=== PATIENT | female | born 1955 | race Caucasian/White ===

== ENCOUNTER 2017-11-15 06:14 | Day surgery (SDC) | payer BC, OTHER ==
[2017-11-13 08:26] VITALS: BMI 28.0
[~2017-11-15 06:14] MED LIST: LACTATED RINGERS 1,000 ML IV SCH; LIDOCAINE 1% 20 ML VIAL (10MG/ML) FOR IV START INTRADERMA PRN; MIDAZOLAM 2 MG/2 ML VIAL IV PRN; MOXIFLOXACIN HCL 0.5% DROPS 3 ML BTL OP ONE; TETRACAINE 0.5% OPHTH (PF) DROPS 4 ML BTL OP ONE; TIMOLOL 0.5% OPHTH DROPS 5 ML BTL OP ONE
[2017-11-15] MEDS: PHENYLEPHRINE 2.5% OPHTH DRP 2ML OP NR ×3 (06:52→07:09)
[2017-11-15] MEDS: CYCLOPENTOLATE 1% OPHTH SOLN 2 ML BTL OP ONE ×3 (06:56→07:14)
[2017-11-15 07:11] LABS: Glucose,Whole Blood 111 mg/dL (75-99)
[2017-11-15 07:17] VITALS: RESP 16; TEMP 98
[2017-11-15] MEDS ORDERED: MIDAZOLAM 2 MG/2 ML VIAL ONE (07:26)
[2017-11-15] MEDS ORDERED: HYALURONATE SODIUM INTRAOCULAR 1 EACH SYRINGE (12MG/ML) INTRAOCULA ONE (07:38)
[2017-11-15] MEDS ORDERED: BALANCED SALT IRRIG SOLN COMB2 15 ML IRRIG.SOLN IRRIGATION ONE (07:38)
[2017-11-15] MEDS ORDERED: LIDOCAINE 1% (PF) 10MG/ML VIAL MISCELLANE ONE (07:38)
[2017-11-15] MEDS ORDERED: EPINEPHrine (PF) 0.3 ML in BALANCED SALT IRRIG SOLN COMB2 500 ML IRRIGATION ONE (07:38)
--- NOTE | 2017-11-15 07:53 | P.OP ---
Date of Procedure: 11/15/17 Preoperative Diagnosis: NS & CS Postoperative Diagnosis: same Procedure(s) Performed: PIOL, OS Implants: PCB0 20.00 Anesthesia: MAC Surgeon: Rey Alejandra Estimated Blood Loss (ml): 0 Pathology: none sent Condition: stable Indications for Procedure: blurry vision Operative Findings: No complications
[2017-11-15 08:29] VITALS: BP 110/64; PULSE 66
--- NOTE | 2017-11-15 12:31 | OP ---
OPERATIVE REPORT DATE OF SURGERY: 11/15/2017. SURGEON: Rey Alejandra MD QC MANAGER: PREOPERATIVE DIAGNOSIS: Nuclear sclerosis, cortical sclerosis. POSTOPERATIVE DIAGNOSIS: Nuclear sclerosis, cortical sclerosis. OPERATION: Phacoemulsification of cataract and intraocular lens implant of the left eye. ESTIMATED BLOOD LOSS: Zero. SPECIMEN TAKEN: None. NARRATIVE: After obtaining the appropriate consent, the patient was brought to the operating room where the patient was placed under cardiac monitoring and prepped and draped in the usual sterile manner. At the 5 o'clock position a 15 degree super sharp blade was used to create a paracentesis followed by instillation of 1% Xylocaine MPF 50:50 mix with BSS into the anterior chamber. This was followed by Amvisc to stabilize the anterior chamber. At the 3 o'clock a self-sealing corneal flap incision was created using 2.8 mm tegan keratome. A cystotome was used to initiate a continuous tear capsulorrhexis which was completed with the Utrata forceps. A Binkhorst cannula was used to hydrodissect the lens nucleus followed by hydrodelineation. Phacoemulsification of the lens was performed utilizing phaco chop in 7.76 seconds at 7% power. The remaining cortical material was removed using the irrigation aspiration mode followed by additional 1% Xylocaine MPF into the anterior chamber followed by viscoelastic to stabilize the capsular bag. An ZAHRAA PCB00 20.0 diopters posterior chamber lens was placed into the capsular bag without difficulty. The remaining viscoelastic material was removed from the anterior chamber with the irrigation/aspiration. Balanced salt solution was used to normalize the intraocular pressure. The incision was checked for watertight integrity. The patient then received two drops of 0.5% timolol followed by two drops Vigamox, was lightly patched and shielded in the usual manner. There were no complications from the procedure. The patient tolerated the procedure well and was returned to recovery in good condition. MMODL / IJN: [id number] /
== END 2017-11-15 08:40 | disposition home or self-care (01) ==
LOC: OR 06:14
PROVIDERS: ATTEND Ophthalmology
DX: H25.12 Age-related nuclear cataract, left eye (principal); H25.012 Cortical age-related cataract, left eye; H52.13 Myopia, bilateral; F32.9 Major depressive disorder, single episode, unspecified; I10 Essential (primary) hypertension; E78.5 Hyperlipidemia, unspecified; E11.9 Type 2 diabetes mellitus without complications; J30.2 Other seasonal allergic rhinitis; M19.90 Unspecified osteoarthritis, unspecified site; K21.9 Gastro-esophageal reflux disease without esophagitis; Z79.84 Long term (current) use of oral hypoglycemic drugs; Z79.899 Other long term (current) drug therapy; Z88.5 Allergy status to narcotic agent; Z88.2 Allergy status to sulfonamides; Z98.51 Tubal ligation status
CPT/HCPCS: 66984; C1780; J2250; J0171; J2001

== ENCOUNTER 2017-11-29 06:13 | Day surgery (SDC) | payer BC ==
[2017-11-24 08:33] VITALS: BMI 28.0
[~2017-11-29 06:13] MED LIST changes: -MIDAZOLAM 2 MG/2 ML VIAL IV PRN; -MOXIFLOXACIN HCL 0.5% DROPS 3 ML BTL OP ONE; +ONDANSETRON 4 MG/2 ML VIAL IVP ONE; -TETRACAINE 0.5% OPHTH (PF) DROPS 4 ML BTL OP ONE; -TIMOLOL 0.5% OPHTH DROPS 5 ML BTL OP ONE
[2017-11-29] MEDS: PHENYLEPHRINE 2.5% OPHTH DRP 2ML OP NR ×3 (06:35→06:46)
[2017-11-29] MEDS: CYCLOPENTOLATE 1% OPHTH SOLN 2 ML BTL OP ONE ×3 (06:38→06:49)
[2017-11-29 06:42] LABS: Glucose,Whole Blood 112 mg/dL (75-99)
[2017-11-29 06:44] VITALS: TEMP 97.1
[2017-11-29] MEDS ORDERED: fentaNYL (PF) 50 MCG/ML 2 ML AMP ONE (07:26)
[2017-11-29] MEDS ORDERED: MIDAZOLAM 2 MG/2 ML VIAL ONE (07:26)
[2017-11-29] MEDS ORDERED: EPINEPHrine (PF) 0.3 ML in BALANCED SALT IRRIG SOLN COMB2 500 ML IRRIGATION ONE ×4 (07:27)
[2017-11-29] MEDS ORDERED: HYALURONATE SODIUM INTRAOCULAR 1 EACH SYRINGE (12MG/ML) INTRAOCULA ONE ×2 (07:35→07:37)
[2017-11-29] MEDS ORDERED: LIDOCAINE 1% (PF) 10MG/ML VIAL MISCELLANE ONE ×2 (07:36→07:37)
[2017-11-29] MEDS ORDERED: BALANCED SALT IRRIG SOLN COMB2 15 ML IRRIG.SOLN IRRIGATION ONE ×2 (07:36→07:37)
--- NOTE | 2017-11-29 07:53 | P.OP ---
Date of Procedure: 11/29/17 Preoperative Diagnosis: NS & CS Postoperative Diagnosis: same Procedure(s) Performed: PIOL, OD Implants: PCB00 20.00 Surgeon: Rey Alejandra Estimated Blood Loss (ml): 0 Pathology: none sent Condition: stable Disposition: same day Indications for Procedure: blurry vision Operative Findings: No complications
[2017-11-29 08:26] VITALS: BP 129/70; PULSE 60; RESP 18
--- NOTE | 2017-11-29 21:40 | OP ---
OPERATIVE REPORT DATE OF SURGERY: 11/29/[address] ROLLER ENGINEER: SURGEON: Dr. Rey Alejandra PREOPERATIVE DIAGNOSES:: Nuclear sclerosis. Cortical sclerosis. POSTOPERATIVE DIAGNOSES:: Nuclear sclerosis. Cortical sclerosis. OPERATION:: Clear cornea phacoemulsification of cataract right OD eye. ESTIMATED BLOOD LOSS:: Zero. SPECIMEN TAKEN:: None. NARRATIVE:: After obtaining the appropriate consent, the patient was brought to the Operating Room where the patient was placed under cardiac monitoring and prepped and draped in the usual sterile manner. At the 11 o'clock position a 15 degree super sharp blade was used to create a paracentesis followed by instillation of 1% Xylocaine MPF 50:50 mix with BSS into the anterior chamber. This was followed by Amvisc to stabilize the anterior chamber. At the 9 o'clock position a self-sealing corneal flap incision was created using 2.8 mm tegan keratome. A cystatome was used to initiate a continuous tear capsulorrhexis which was completed with the Utrata forceps. A Binkhorst cannula was used to hydrodissect the lens nucleus followed by hydrodelineation. Phacoemulsification of the lens was performed utilizing phacochop in 8.73 seconds at 8% power. The remaining cortical material was removed using the irrigation aspiration mode followed by additional 1% Xylocaine MPF into the anterior chamber followed by viscoelastic to stabilize the capsular bag. An ZAHRAA PCB 0 0 20.0 diopters posterior chamber lens was placed into the capsular bag without difficulty. The remaining viscoelastic material was removed from the anterior chamber with the irrigation/aspiration. Balanced salt solution was used to normalize the intraocular pressure. The incision was checked for watertight integrity. The patient then received two drops of 0.5% timolol followed by two drops Vigamox, was lightly patched and shielded in the usual manner. There were no complications from the procedure. The patient tolerated the procedure well and was returned to recovery in good condition. MMODL / IJN: [id number] /
[2017-11-30] MEDS ORDERED: TETRACAINE 0.5% OPHTH (PF) DROPS 4 ML BTL OP ONE (05:00)
[2017-11-30] MEDS ORDERED: MOXIFLOXACIN HCL 0.5% DROPS 3 ML BTL OP ONE (05:00)
[2017-11-30] MEDS ORDERED: TIMOLOL 0.5% OPHTH DROPS 5 ML BTL OP ONE (05:00)
== END 2017-11-29 08:36 | disposition home or self-care (01) ==
LOC: OR 06:13
PROVIDERS: ATTEND Ophthalmology
DX: H25.11 Age-related nuclear cataract, right eye (principal); F32.9 Major depressive disorder, single episode, unspecified; I10 Essential (primary) hypertension; E78.5 Hyperlipidemia, unspecified; K21.9 Gastro-esophageal reflux disease without esophagitis; E11.9 Type 2 diabetes mellitus without complications; Z79.84 Long term (current) use of oral hypoglycemic drugs; Z79.899 Other long term (current) drug therapy; Z88.5 Allergy status to narcotic agent; Z88.2 Allergy status to sulfonamides
CPT/HCPCS: 66984; C1780; J2250; J0171; J3010; J2001

== ENCOUNTER → 2018-04-27 | Outpatient (CLI) | payer BC ==
--- NOTE | 2018-04-30 09:19 | MM ---
Reason for exam: screening (asymptomatic). Last mammogram was performed 2 years and 2 months ago. History: Patient is postmenopausal. Family history of breast cancer in aunt at age 55. Physical Findings: A clinical breast exam by your physician is recommended on an annual basis and results should be correlated with mammographic findings. MG 3D Screening Mammo W/Cad Bilateral CC and MLO view(s) were taken. Prior study comparison: February 11, 2016, bilateral MG 3d work up w/cad [facility]. February 08, 2016, bilateral MG screening mammo w CAD. The breast tissue is heterogeneously dense. This may lower the sensitivity of mammography. Stable benign calcifications. There is no discrete abnormality. No significant changes when compared with prior studies. ASSESSMENT: Benign, BI-RAD 2 RECOMMENDATION: Routine screening mammogram of both breasts in 1 year.
== END | disposition home or self-care (01) ==
LOC: RADMAMWWP 10:06
PROVIDERS: ATTEND Family Medicine
DX: Z12.31 Encounter for screening mammogram for malignant neoplasm of breast (principal)
CPT/HCPCS: 77063; 77067

== ENCOUNTER → 2021-02-15 | Outpatient (CLI) | payer BC ==
--- NOTE | 2021-02-16 09:15 | MM ---
Reason for exam: screening (asymptomatic). Last mammogram was performed 2 years and 10 months ago. History: Patient is postmenopausal. Family history of breast cancer in paternal aunt at age 55. Physical Findings: A clinical breast exam by your physician is recommended on an annual basis and results should be correlated with mammographic findings. MG 3D Screening Mammo W/Cad Bilateral CC and MLO view(s) were taken. Prior study comparison: April 27, 2018, bilateral MG 3d screening mammo w/cad. February 11, 2016, bilateral MG 3d work up w/cad [facility]. The breast tissue is heterogeneously dense. This may lower the sensitivity of mammography. Benign appearing bilateral calcifications. No significant changes when compared with prior studies. ASSESSMENT: Benign, BI-RAD 2 RECOMMENDATION: Routine screening mammogram of both breasts in 1 year.
== END | disposition home or self-care (01) ==
LOC: RADMAMWWP 06:57
PROVIDERS: ATTEND Family Medicine
DX: Z12.31 Encounter for screening mammogram for malignant neoplasm of breast (principal); Z78.0 Asymptomatic menopausal state; Z80.3 Family history of malignant neoplasm of breast
CPT/HCPCS: 77063; 77067

== ENCOUNTER 2021-04-27 07:29 | Day surgery (SDC) | payer BC ==
[2021-04-26 11:10] VITALS: BMI 30.1
[~2021-04-27 07:29] MED LIST changes: -LIDOCAINE 1% 20 ML VIAL (10MG/ML) FOR IV START INTRADERMA PRN; -ONDANSETRON 4 MG/2 ML VIAL IVP ONE
[2021-04-27 08:09] VITALS: TEMP 96.2
[2021-04-27 08:14] LABS: Glucose,Whole Blood 150 mg/dL (75-99)
[2021-04-27] MEDS ORDERED: IOPAMIDOL M200 10 ML VIAL ONE (08:29)
[2021-04-27] MEDS ORDERED: ROPIVACAINE 5MG/ML 20ML VIAL ONE (08:29)
[2021-04-27] MEDS ORDERED: MIDAZOLAM 2 MG/2 ML VIAL ONE (08:29)
[2021-04-27] MEDS ORDERED: TRIAMCINOLONE ACETONIDE 40 MG/ML 1 ML VIAL ONE (08:29)
[2021-04-27] MEDS ORDERED: fentaNYL (PF) 50 MCG/ML 2 ML AMP ONE (08:29)
--- NOTE | 2021-04-27 08:41 | P.PCN ---
Date of Procedure: 04/27/21 Surgeon: Glendy Arteaga Pathology: none sent Condition: stable Disposition: PACU Description of Procedure: PREOPERATIVE DIAGNOSIS: 1-Lumbar radiculopathy 2- Lumber Degenerative Disc Diseases. POSTOPERATIVE DIAGNOSIS: 1-Lumbar radiculopathy. 2-Lumbar Degenerative Disc Diseases PROCEDURE 1. Lumbar epidural steroid injection under fluoroscopic guidance at the L2-3 level left paramedian approach. 2. Lumbar epidurogram. ANESTHESIA: Local with 1% lidocaine; and IV moderate conscious sedation with Versed and fentanyl EBL: Minimal PROCEDURE INDICATION: The patient with low back pain and radiculitis symptoms unresponsive to conservative treatment. Fluoroscopy was used to optimize visualization of the needle placement and to maximize safety. PROCEDURE DESCRIPTION / TECHNIQUE: The patient was seen and identified in the preoperative area. Risks, benefits, complications including but not limited to infections ,bleeding ,allergic reaction to the medications ,nerve damage and not complete pain relief , and alternatives were discussed with the patient. The patient agreed to proceed with the procedure and signed the consent. IV was started, and vital signs were stable. Patient was taken to the OR and time out was completed. The patient was placed in the prone position on procedure table and a pillow was placed under the abdomen to reduce lumbar lordosis. The lumbosacral area was prepped and draped in the usual sterile fashion with ChloraPrep.Patient was closely monitored during the procedure. Conscious sedation was used during the procedure to decrease patients anxiety. Vital signs were monitered during the entire procedure. Using anterior-posterior fluoroscopy, the L2-3 interlaminar space was identified and the skin over this site was marked and then infiltrated with 1% lidocaine subcutaneously. Subsequently, a 20-gauge Tuohy epidural needle was inserted and advanced toward the epidural space using the Loss of resistance to air technique and guided by AP and lateral fluoroscopy. The correct needle position in the epidural space was verified with the injection of 1 mL of the water soluble contrast dye Omnipaque 180 contrast and observing an excellent epi durogram with the epidural spread of the dye, after negative aspiration for blood and CSF and in the absence of paresthesias. Again after negative aspiration, a 8 ml mixture containing 80 mg of Kenalog and 3 ml of preservative free Normal Saline, and 2 ml of preservative free ropivacaine 0.5% solution was injected and a washout of epidurogram was seen. Needle was withdrawn intact, skin was cleansed, and bandages were applied. patient tolerated procedure well and was transferred to PACU in stable condition.A copy of the needle placement picture was saved to the fluoroscopy machine. COMPLICATIONS: None DISPOSITION / PLANS: The patient was placed in a supine position and transferred to the recovery area in a stable condition for observation. There was no evidence of lower extremity motor or sensory deficit after the procedure. Patient was discharged from the recovery room after meeting discharge criteria. Home discharge instructions were given to the patient by the staff. The patient was reexamined prior to discharge. The patient will schedule a follow up in the clinic in 2-4 weeks.
[2021-04-27] MEDS ORDERED: IV FLUID CONTINUATION 1,000 ML IV ONE (08:48)
[2021-04-27 09:05] VITALS: BP 118/77; PULSE 81; RESP 14
--- NOTE | 2021-04-27 11:22 | FL ---
Fluoroscopy HISTORY: Pain 5 seconds fluoroscopy time supplied to the referring clinician. 2 intraoperative C-arm images docume nt the procedure. See dictated report from anesthesia.
== END 2021-04-27 09:17 | disposition home or self-care (01) ==
LOC: ORPAIN 07:29
PROVIDERS: ATTEND Anesthesiology
DX: M51.16 Intervertebral disc disorders with radiculopathy, lumbar region (principal); Z88.5 Allergy status to narcotic agent; Z78.0 Asymptomatic menopausal state; E11.9 Type 2 diabetes mellitus without complications
CPT/HCPCS: 62323; J2250; J3301; J3010; Q9966; J2795; 99152

== ENCOUNTER 2021-06-01 07:25 | Day surgery (SDC) | payer BC ==
[2021-05-28 13:06] VITALS: BMI 31.5
[2021-06-01 07:55] LABS: Glucose,Whole Blood 151 mg/dL (75-99)
[2021-06-01 07:57] VITALS: TEMP 98
[2021-06-01] MEDS ORDERED: ROPIVACAINE 5MG/ML 20ML VIAL ONE (08:00)
[2021-06-01] MEDS ORDERED: IOPAMIDOL M200 10 ML VIAL ONE (08:00)
[2021-06-01] MEDS ORDERED: TRIAMCINOLONE ACETONIDE 40 MG/ML 1 ML VIAL ONE (08:00)
--- NOTE | 2021-06-01 08:12 | P.PCN ---
Date of Procedure: 06/01/21 Surgeon: Glendy Arteaga Pathology: none sent Condition: stable Disposition: PACU Description of Procedure: PREOPERATIVE DIAGNOSIS: 1-Lumbar radiculopathy 2- Lumber Degenerative Disc Diseases. POSTOPERATIVE DIAGNOSIS: 1-Lumbar radiculopathy. 2-Lumbar Degenerative Disc Diseases PROCEDURE 1. Lumbar epidural steroid injection under fluoroscopic guidance at the L2-3 level left paramedian approach. 2. Lumbar epidurogram. ANESTHESIA: Local with 1% lidocaine; and IV moderate conscious sedation with Versed and fentanyl EBL: Minimal PROCEDURE INDICATION: The patient with low back pain and radiculitis symptoms unresponsive to conservative treatment. Fluoroscopy was used to optimize visualization of the needle placement and to maximize safety. PROCEDURE DESCRIPTION / TECHNIQUE: The patient was seen and identified in the preoperative area. Risks, benefits, complications including but not limited to infections ,bleeding ,allergic reaction to the medications ,nerve damage and not complete pain relief , and alternatives were discussed with the patient. The patient agreed to proceed with the procedure and signed the consent. IV was started, and vital signs were stable. Patient was taken to the OR and time out was completed. The patient was placed in the prone position on procedure table and a pillow was placed under the abdomen to reduce lumbar lordosis. The lumbosacral area was prepped and draped in the usual sterile fashion with ChloraPrep.Patient was closely monitored during the procedure. Conscious sedation was used during the procedure to decrease patients anxiety. Vital signs were monitered during the entire procedure. Using anterior-posterior fluoroscopy, the L2-3 interlaminar space was identified and the skin over this site was marked and then infiltrated with 1% lidocaine subcutaneously. Subsequently, a 20-gauge Tuohy epidural needle was inserted and advanced toward the epidural space using the Loss of resistance to air technique and guided by AP and lateral fluoroscopy. The correct needle position in the epidural space was verified with the injection of 1 mL of the water soluble contrast dye Omnipaque 180 contrast and observing an excellent epi durogram with the epidural spread of the dye, after negative aspiration for blood and CSF and in the absence of paresthesias. Again after negative aspiration, a 7 ml mixture containing 40 mg of Kenalog and 3 ml of preservative free Normal Saline, and 2 ml of preservative free ropivacaine 0.5% solution was injected and a washout of epidurogram was seen. Needle was withdrawn intact, skin was cleansed, and bandages were applied. patient tolerated procedure well and was transferred to PACU in stable condition.A copy of the needle placement picture was saved to the fluoroscopy machine. COMPLICATIONS: None DISPOSITION / PLANS: The patient was placed in a supine position and transferred to the recovery area in a stable condition for observation. There was no evidence of lower extremity motor or sensory deficit after the procedure. Patient was discharged from the recovery room after meeting discharge criteria. Home discharge instructions were given to the patient by the staff. The patient was reexamined prior to discharge. The patient will schedule a follow up in the clinic in 2-4 weeks.
--- NOTE | 2021-06-01 08:20 | FL ---
EXAMINATION TYPE: FL guided pain mgmt statistic DATE OF EXAM: 06/01/2021 CLINICAL HISTORY: Low back pain. TECHNIQUE: Fluoroscopy. COMPARISON: None. FINDINGS: Fluoroscopic guidance was provided during pain relief procedure performed by Dr. Arteaga . A total of 9 seconds of fluoroscopic time was utilized during the procedure and two spot images are acquired. Images acquired shows needle localization with contrast injection and posterior L3 level. Underlying scoliosis is noted. IMPRESSION: As Above.
[2021-06-01 08:22] VITALS: RESP 18
[2021-06-01 08:47] VITALS: BP 122/69; PULSE 92
== END 2021-06-01 08:45 | disposition home or self-care (01) ==
LOC: ORPAIN 07:25
PROVIDERS: ATTEND Anesthesiology
DX: M51.16 Intervertebral disc disorders with radiculopathy, lumbar region (principal)
CPT/HCPCS: 62323; J3301; Q9966; J2795; 99152

== ENCOUNTER → 2021-12-09 | Outpatient (CLI) | payer BC ==
--- NOTE | 2021-12-10 16:21 | BD ---
EXAMINATION TYPE: Axial Bone Density DATE OF EXAM: 12/09/2021 COMPARISON: NONE CLINICAL HISTORY: 66 years year old Female. ICD-10 CODE: M41.80 DEGENDERATIVE SCOLIOSIS Height: 61.2 IN Weight: 175 LBS FRAX RISK QUESTIONS: Family History (Parent hip fracture): YES MOTHER RISK FACTORS HISTORY OF: History of Wrist Fracture: YES RT When: AGE 7 Family History of Osteoporosis: YES MOTHER AND SISTER Active: YES MODERATE Postmenopausal woman: AGE 46 Lost more than 2 inches in height since high school: YES 09/10" MEDICATIONS: Additional Medications: CALCIUM, VIT D, PAIN MEDS, LISINOPRIL, CHOLESTEROL MEDS, LEXAPRO, BUSPAR, MUS WINDY RELAXERS EXAM MEASUREMENTS: Bone mineral densitometry was performed using the [employer] System. Bone mineral density as measured about the Lumbar spine is: ----- L1-L4(G/cm2): 1.017 T Score Values are as follows: ----- L1: -2.3 ----- L2: -0.8 ----- L3: -1.2 ----- L4: -1.3 ----- L1-L4: -1.4 Bone mineral density BASELINE Bone mineral density about the R hip (g/cm2): 0.859 Bone mineral density about the L hip (g/cm2): 0.836 T Score values are as follows: -----R Neck: -1.3 -----L Neck: -1.5 -----R Total: -0.9 -----L Total: -1.0 Bone mineral density BASELINE FRAX%s: The graph provided illustrates a 16.0 chance for a major osteoporotic fx and a 0.9 chance for the hips probability for fx in 10 years time. IMPRESSION: Osteopenia (T Score between -2.5 and -1). There is slightly increased risk of fracture and the patient may be considered for treatment. Re-Screen 2-5 years. NOTE: T-SCORE=SD OF THE YOUNG ADULT MEAN.
== END | disposition home or self-care (01) ==
LOC: RADBDWWP 16:01
PROVIDERS: ATTEND Orthopaedic Surgery Orthopaedic Surgery of the Spine
DX: M85.89 Other specified disorders of bone density and structure, multiple sites (principal)
CPT/HCPCS: 77080

== ENCOUNTER 2022-04-13 08:44 | Observation (INO) | payer BC ==
[2022-04-13 09:06] LABS: Glucose,Whole Blood 147 mg/dL (70-110)
[2022-04-13 09:46] LABS: Basophils % (A) 1 %; Eosinophils # (A) 0.2 k/uL (0-0.7); Eosinophils % (A) 3 %; HCT 41.9 % (34.0-46.0); HGB 14.1 gm/dL (11.4-16.0); Lymphocytes # (A) 2.1 k/uL (1.0-4.8); Lymphocytes % (A) 28 %; MCH 29.5 pg (25.0-35.0); MCHC 33.6 g/dL (31.0-37.0); MCV 87.9 fL (80.0-100.0); Mean Platelet Volume 7.8; Monocytes # (A) 0.4 k/uL (0-1.0); Monocytes % (A) 5 %; Neutrophils # (A) 4.5 k/uL (1.3-7.7); Neutrophils % (A) 62 %; Platelet Count 372 k/uL (150-450); RBC 4.76 m/uL (3.80-5.40); RDW 12.9 % (11.5-15.5); WBC 7.3 k/uL (3.8-10.6)
[2022-04-13 09:56] LABS: INR 0.9 (<1.2); Partial Thromboplastin Time 22.8 sec (22.0-30.0); Prothrombin Time 9.7 sec (9.0-12.0)
[2022-04-13 09:59] LABS: ALT 30 U/L (4-34); AST 40 U/L (14-36); African American GFR (CKD) >90 (>60 ml/min/1.73 sqM); Albumin 5.2 g/dL (3.5-5.0); Alkaline Phosphatase 97 U/L (38-126); Anion Gap 17 mmol/L; Blood Urea Nitrogen 11 mg/dL (7-17); Carbon Dioxide 17 mmol/L (22-30); Chloride 102 mmol/L (98-107); Glucose 161 mg/dL (74-99); Non-African American GFR(CKD) >90 (>60 ml/min/1.73 sqM); Potassium 4.6 mmol/L (3.5-5.1); Sodium 136 mmol/L (137-145); Total Bilirubin 0.8 mg/dL (0.2-1.3); Total Protein 7.9 g/dL (6.3-8.2)
[2022-04-13 10:23] LABS: Appearance,Urine Clear (Clear); Bilirubin,Urine Negative (Negative); Blood,Urine Negative (Negative); Color,Urine Yellow; Glucose,Urine (UA) Negative (Negative); Ketones,Urine Negative (Negative); Leukocyte Esterase,Urine Small (Negative); Nitrite,Urine Negative (Negative); Protein,Urine Negative (Negative); RBC,Urine 1 /hpf (0-5); Squamous Epithelial Cell,Urine 3 /hpf (0-4); Urobilinogen,Urine <2.0 mg/dL (<2.0); WBC,Urine 2 /hpf (0-5)
--- NOTE | 2022-04-13 10:30 | CT ---
EXAMINATION TYPE: CT brain wo con DATE OF EXAM: 04/13/2022 COMPARISON: INDICATION: Altered mental status DLP: 1070.4 mGycm, Automated exposure control for dose reduction was used. CONTRAST: None CT of the brain is performed utilizing 3 mm thick sections through the posterior fossa and 3 mm thick sections through the remaining calvarium. Study is performed within 24 hours of arrival to the hosp [facility]. No abnormal hyperdensity is present to suggest an acute intracranial hemorrhage. No mass lesion is evident. No acute infarcts are evident. Ventricles and sulci are appropriate for the patient age. Paranasal sinuses and mastoid air cells within the [id number] are clear. IMPRESSIONS: 1. No acute intracranial process. Follow-up MRI can be performed as clinically indicated
[2022-04-13] MEDS ORDERED: NALOXONE 0.4 MG/ML 1 ML VIAL IV PRN (11:35)
[2022-04-13] MEDS ORDERED: traMADol 50 MG TAB PO PRN (11:38)
--- NOTE | 2022-04-13 11:41 | ED ---
Altered Mental Status HPI - General Chief Complaint: Altered Mental Status Stated Complaint: memory problems Time Seen by Provider: 04/13/22 09:13 Source: patient, RN notes reviewed Mode of arrival: ambulatory Limitations: no limitations - History of Present Illness Initial Comments: 66-year-old female presents emergency Department chief complaint of episode of memory loss. Patient states that she had a go to a work meeting around 8:00 morning and states that she does not remember being at the meeting or leave the meeting but states that she remembers being back in office and unsure why. Patient states that she had no trauma denies appears or chills denies any current complaints including headache blurred vision or any focal weakness no chest pain or shortness breath. Patient is a diabetic has not eaten anything but only takes metformin blood sugar currently 140. Patient denies any difficulty ambulate and no other confusion patient did state that she had an episode approximately 7 years agosimilar to this with no acute findings. - Related Data Home Medications Medication Instructions Recorded Confirmed metFORMIN HCL ER [Glucophage XR] 500 mg PO BID 11/11/13 04/13/22 lisinopriL [Zestril] 20 mg PO DAILY 01/05/17 04/13/22 Escitalopram [Lexapro] 20 mg PO QAM 11/13/17 04/13/22 Celecoxib [CeleBREX] 200 mg PO DAILY 04/26/21 04/13/22 Cyclobenzaprine [Flexeril] 10 mg PO HS 04/26/21 04/13/22 busPIRone HCl [Buspar] 5 mg PO BID 04/26/21 04/13/22 Atorvastatin [Lipitor] 40 mg PO DAILY 04/13/22 04/13/22 traMADol HCl [Ultram] 50 mg PO HS PRN 04/13/22 04/13/22 Allergies Allergy/AdvReac Type Severity Reaction Status Date / Time morphine Allergy Anaphylaxis Verified 04/13/22 10:12 Review of Systems ROS Statement: Those systems with pertinent positive or pertinent negative responses have been documented in the HPI. ROS Other: All systems not noted in ROS Statement are negative. Past Medical History Past Medical History: Diabetes Mellitus, GERD/Reflux, Hyperlipidemia, Hypertension, Musculoskeletal Disorder, Osteoarthritis (OA) Additional Past Medical History / Comment(s): migraines, DDD, scoliosis History of Any Multi-Drug Resistant Organisms: None Reported Past Surgical History: Cholecystectomy, Orthopedic Surgery, Tubal Ligation Additional Past Surgical History / Comment(s): ent surgery, elbow sx, mark lasix sx, cataracts removed Past Anesthesia/Blood Transfusion Reactions: Postoperative Nausea & Vomiting (P ONV) Past Psychological History: Anxiety, Depression Smoking Status: Never smoker Past Alcohol Use History: Occasional Past Drug Use History: None Reported - Past Family History Mother Family Medical History: No Reported History Brother(s) Additional Family Medical History / Comment(s): Brother had a heart attack at an early age. Also grandfather had a heart attack General Exam Limitations: no limitations General appearance: alert, in no apparent distress Head exam: Present: atraumatic, normocephalic, normal inspection Eye exam: Present: normal appearance, PERRL, EOMI. Absent: scleral icterus, conjunctival injection, periorbital swelling ENT exam: Present: normal exam, normal oropharynx, mucous membranes moist Neck exam: Present: normal inspection, full ROM. Absent: tenderness, meningismus, lymphadenopathy Respiratory exam: Present: normal lung sounds bilaterally. Absent: respiratory distress, wheezes, rales, rhonchi, stridor Cardiovascular Exam: Present: regular rate, normal rhythm, normal heart sounds. Absent: systolic murmur, diastolic murmur, rubs, gallop, clicks Extremities exam: Present: normal inspection, full ROM, normal capillary refill. Absent: tenderness, pedal edema, joint swelling, calf tenderness Neurological exam: Present: alert, oriented X3, CN II-XII intact, reflexes normal, other (finger to nose intact, NIH O GCS 15). Absent: motor sensory deficit Skin exam: Present: warm, dry, intact, normal color. Absent: rash Course Vital Signs 04/13/22 08:54 Temperature 98 F Pulse Rate 113 H Respiratory 18 Rate Blood Pressure 151/92 O2 Sat by Pulse 100 Oximetry Medical Decision Making - Medical Decision Making 66-year-old presented for an episode of memory loss. Patient did have a transient amnesia episode. Patient is currently asymptomatic. Patient has no focal findings. Workup was negative including labs and CT. Patient admitted for neurology evaluation. - Lab Data Result diagrams: 04/13/22 09:30 04/13/22 09:30 Lab Results 04/13/22 04/13/22 04/13/22 Range/Units 09:05 09:30 09:30 WBC 7.3 (3.8-10.6) k/uL RBC 4.76 (3.80-5.40) m/uL Hgb 14.1 (11.4-16.0) gm/dL Hct 41.9 (34.0-46.0) % MCV 87.9 (80.0-100.0) fL MCH 29.5 (25.0-35.0) pg MCHC 33.6 (31.0-37.0) g/dL RDW 12.9 (11.5-15.5) % Plt Count 372 (150-450) k/uL MPV 7.8 Neutrophils % 62 % Lymphocytes % 28 % Monocytes % 5 % Eosinophils % 3 % Basophils % 1 % Neutrophils # 4.5 (1.3-7.7) k/uL Lymphocytes # 2.1 (1.0-4.8) k/uL Monocytes # 0.4 (0-1.0) k/uL Eosinophils # 0.2 (0-0.7) k/uL Basophils # 0.0 (0-0.2) k/uL PT 9.7 (9.0-12.0) sec INR 0.9 (<1.2) APTT 22.8 (22.0-30.0) sec Sodium (137-145) mmol/L Potassium (3.5-5.1) mmol/L Chloride (98-107) mmol/L Carbon Dioxide (22-30) mmol/L Anion Gap mmol/L BUN (7-17) mg/dL Creatinine (0.52-1.04) mg/dL Est GFR (CKD-EPI)AfAm (>60 ml/min/1.73 sqM) Est GFR (CKD-EPI)NonAf (>60 ml/min/1.73 sqM) Glucose (74-99) mg/dL POC Glucose (mg/dL) 147 H (70-110) mg/dL POC Glu Mellowing Machine Operator ID Lakshmi Head Calcium (8.4-10.2) mg/dL Total Bilirubin (0.2-1.3) mg/dL AST (14-36) U/L ALT (4-34) U/L Alkaline Phosphatase (38-126) U/L Ammonia (<30) umol/L Troponin I (0.000-0.034) ng/mL Total Protein (6.3-8.2) g/dL Albumin (3.5-5.0) g/dL Urine Color Urine Appearance (Clear) Urine pH (5.0-8.0) Ur Specific [place] (1.001-1.035) Urine Protein (Negative) Urine Glucose (UA) (Negative) Urine Ketones (Negative) Urine Blood (Negative) Urine Nitrite (Negative) Urine Bilirubin (Negative) Urine Urobilinogen (<2.0) mg/dL Ur Leukocyte Esterase (Negative) Urine RBC (0-5) /hpf Urine WBC (0-5) /hpf Ur Squamous Epith Cells (0-4) /hpf 04/13/22 04/13/22 04/13/22 Range/Units 09:30 09:30 09:30 WBC (3.8-10.6) k/uL RBC (3.80-5.40) m/uL Hgb (11.4-16.0) gm/dL Hct (34.0-46.0) % MCV (80.0-100.0) fL MCH (25.0-35.0) pg MCHC (31.0-37.0) g/dL RDW (11.5-15.5) % Plt Count (150-450) k/uL MPV Neutrophils % % Lymphocytes % % Monocytes % % Eosinophils % % Basophils % % Neutrophils # (1.3-7.7) k/uL Lymphocytes # (1.0-4.8) k/uL Monocytes # (0-1.0) k/uL Eosinophils # (0-0.7) k/uL Basophils # (0-0.2) k/uL PT (9.0-12.0) sec INR (<1.2) APTT (22.0-30.0) sec Sodium 136 L (137-145) mmol/L Potassium 4.6 (3.5-5.1) mmol/L Chloride 102 (98-107) mmol/L Carbon Dioxide 17 L (22-30) mmol/L Anion Gap 17 mmol/L BUN 11 (7-17) mg/dL Creatinine 0.49 L (0.52-1.04) mg/dL Est GFR (CKD-EPI)AfAm >90 (>60 ml/min/1.73 sqM) Est GFR (CKD-EPI)NonAf >90 (>60 ml/min/1.73 sqM) Glucose 161 H (74-99) mg/dL POC Glucose (mg/dL) (70-110) mg/dL POC Glu Mellowing Machine Operator ID Calcium 10.0 (8.4-10.2) mg/dL Total Bilirubin 0.8 (0.2-1.3) mg/dL AST 40 H (14-36) U/L ALT 30 (4-34) U/L Alkaline Phosphatase 97 (38-126) U/L Ammonia <9 (<30) umol/L Troponin I <0.012 (0.000-0.034) ng/mL Total Protein 7.9 (6.3-8.2) g/dL Albumin 5.2 H (3.5-5.0) g/dL Urine Color Urine Appearance (Clear) Urine pH (5.0-8.0) Ur Specific [place] (1.001-1.035) Urine Protein (Negative) Urine Glucose (UA) (Negative) Urine Ketones (Negative) Urine Blood (Negative) Urine Nitrite (Negative) Urine Bilirubin (Negative) Urine Urobilinogen (<2.0) mg/dL Ur Leukocyte Esterase (Negative) Urine RBC (0-5) /hpf Urine WBC (0-5) /hpf Ur Squamous Epith Cells (0-4) /hpf 04/13/22 Range/Units 09:56 WBC (3.8-10.6) k/uL RBC (3.80-5.40) m/uL Hgb (11.4-16.0) gm/dL Hct (34.0-46.0) % MCV (80.0-100.0) fL MCH (25.0-35.0) pg MCHC (31.0-37.0) g/dL RDW (11.5-15.5) % Plt Count (150-450) k/uL MPV Neutrophils % % Lymphocytes % % Monocytes % % Eosinophils % % Basophils % % Neutrophils # (1.3-7.7) k/uL Lymphocytes # (1.0-4.8) k/uL Monocytes # (0-1.0) k/uL Eosinophils # (0-0.7) k/uL Basophils # (0-0.2) k/uL PT (9.0-12.0) sec INR (<1.2) APTT (22.0-30.0) sec Sodium (137-145) mmol/L Potassium (3.5-5.1) mmol/L Chloride (98-107) mmol/L Carbon Dioxide (22-30) mmol/L Anion Gap mmol/L BUN (7-17) mg/dL Creatinine (0.52-1.04) mg/dL Est GFR (CKD-EPI)AfAm (>60 ml/min/1.73 sqM) Est GFR (CKD-EPI)NonAf (>60 ml/min/1.73 sqM) Glucose (74-99) mg/dL POC Glucose (mg/dL) (70-110) mg/dL POC Glu Mellowing Machine Operator ID Calcium (8.4-10.2) mg/dL Total Bilirubin (0.2-1.3) mg/dL AST (14-36) U/L ALT (4-34) U/L Alkaline Phosphatase (38-126) U/L Ammonia (<30) umol/L Troponin I (0.000-0.034) ng/mL Total Protein (6.3-8.2) g/dL Albumin (3.5-5.0) g/dL Urine Color Yellow Urine Appearance Clear (Clear) Urine pH 7.0 (5.0-8.0) Ur Specific [place] 1.010 (1.001-1.035) Urine Protein Negative (Negative) Urine Glucose (UA) Negative (Negative) Urine Ketones Negative (Negative) Urine Blood Negative (Negative) Urine Nitrite Negative (Negative) Urine Bilirubin Negative (Negative) Urine Urobilinogen <2.0 (<2.0) mg/dL Ur Leukocyte Esterase Small H (Negative) Urine RBC 1 (0-5) /hpf Urine WBC 2 (0-5) /hpf Ur Squamous Epith Cells 3 (0-4) /hpf Disposition Clinical Impression: Transient amnesia Disposition: ADMITTED IP TO THIS HOSP Condition: Fair Referrals: Rosario Mukherjee DO [Primary Care Provider] - 1-2 days Time of Disposition: 11:35
[2022-04-13] MEDS ORDERED: ASPIRIN 81 MG PO STA (13:58)
--- NOTE | 2022-04-13 14:32 | P.CNNES ---
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 Patient states that she woke up at 6 AM in usual state of health. She went to work at 7:20 AM. She started a meeting with her supervisor lens generating at 7:30 AM. She remembers looking at the clock when it was 8:10 AM, thinking that she has to go to her office on time. The next she remembers is finding herself in her office at 8:25 AM. She has no memory of what happened in those 15 minutes. She does not remember leaving the meeting and going back to her office. She later spoke to her coworkers, and apparently patient did not acted unusual otherwise, did not raise any red flags. Denied any focal neurological symptoms like slurred speech facial droop problem with the vision, focal numbness tingling or weakness, chest pain or abdominal pain. Patient called her , who brought her to the hospital. While she was in the car with her , she kept on repeating "did I called you". While in the ER, she developed headache, which she rated 4/10, like her migraine. Denies any visual aura. Vital signs arrival blood pressure 151/92, pulse rate 113, temperature 98.0. Blood test shows normal CBC PT/PTT, sodium is an 36 potassium is normal, normal renal function, AST is mildly elevated 40 with normal ALT 30. Ammonia is normal less than 9. Troponin negative. UA negative. CT head showed no acute intracranial process. I personally reviewed CT head, agree with the findings. Visualized paranasal sinuses are clear. EKG shows sinus tachycardia, possible left atrial enlargement. Patient has history of diabetes for last 25 years, hypertension, hyperlipidemia, all are well controlled. She denies any tobacco, he drinks alcohol very occasionally, does not use any marijuana. Patient's medications include Glucophage XR, lisinopril, Lexapro 20 mg, BuSpar 5 mg twice a day, Flexeril 10 mg at bedtime, Celebrex, tramadol 50 mg at bedtime, Lipitor 40 mg. she states that she takes tramadol very occasionally, has not taken it for 1 week. Patient says that she has a similar event happened before 15 years ago, which was thought to be related to dehydration. Never determined any cause for the event. Patient admits to having a lot of stresses at work with the kids lately. No history of seizures, family history of seizures or head injuries. Patient's mother had mini stroke. Patient has history of migraines since she was age age 16 until she had menopau se. She used to have 6-7 migraines a month, lasting for 24 hours sometimes up to 2 days. She would have all vascular features with nausea vomiting light and noise sensitivity, throbbing headache. She used to take Imitrex. Since she had menopause 20 years ago, the frequency of migraines has decreased down to twice a year. She calls these as "silent migraines", in which her headaches are not as severe, rating only 2/10. She does get nausea, dizziness light and noise sensitivity with this migraine. No aura even with these different migraines. Review of Systems Constitutional: Denies chills, Denies fever Eyes: denies blurred vision, denies pain Ears: deny: decreased hearing, ear discharge Ears, nose, mouth and throat: Reports headache, Denies sore throat Cardiovascular: Denies chest pain, Denies shortness of breath Respiratory: Denies cough Gastrointestinal: Denies abdominal pain, Denies diarrhea, Denies nausea, Denies vomiting Genitourinary: Denies dysuria, Denies hematuria Musculoskeletal: Denies myalgias Integumentary: Denies pruritus, Denies rash Neurological: Reports as per HPI Psychiatric: Reports anxiety, Reports depression Endocrine: Denies fatigue, Denies weight change Hematologic/Lymphatic: Denies easy bruising Allergic/Immunologic: Denies persistent infections Past Medical History Past Medical History: Diabetes Mellitus, GERD/Reflux, Hyperlipidemia, Hypertension, Musculoskeletal Disorder, Osteoarthritis (OA) Additional Past Medical History / Comment(s): migraines, DDD, scoliosis History of Any Multi-Drug Resistant Organisms: None Reported Past Surgical History: Cholecystectomy, Orthopedic Surgery, Tubal Ligation Additional Past Surgical History / Comment(s): ent surgery, elbow sx, mark lasix sx, cataracts removed Past Anesthesia/Blood Transfusion Reactions: Postoperative Nausea & Vomiting (PONV) Past Psychological History: Anxiety, Depression Smoking Status: Never smoker Past Alcohol Use History: Occasional Past Drug Use History: None Reported - Past Family History Mother Family Medical History: No Reported History Brother(s) Additional Family Medical History / Comment(s): Brother had a heart attack at an early age. Also grandfather had a heart attack Medications and Allergies Home Medications Medication Instructions Recorded Confirmed Type metFORMIN HCL ER [Glucophage XR] 500 mg PO BID 11/11/13 04/13/22 History lisinopriL [Zestril] 20 mg PO DAILY 01/05/17 04/13/22 History Escitalopram [Lexapro] 20 mg PO QAM 11/13/17 04/13/22 History Celecoxib [CeleBREX] 200 mg PO DAILY 04/26/21 04/13/22 History Cyclobenzaprine [Flexeril] 10 mg PO HS 04/26/21 04/13/22 History busPIRone HCl [Buspar] 5 mg PO BID 04/26/21 04/13/22 History Atorvastatin [Lipitor] 40 mg PO DAILY 04/13/22 04/13/22 History traMADol HCl [Ultram] 50 mg PO HS PRN 04/13/22 04/13/22 History Allergies Allergy/AdvReac Type Severity Reaction Status Date / Time morphine Allergy Anaphylaxis Verified 04/13/22 10:12 Physical Examination - Vital Signs Vital Signs: Vital Signs Temp Pulse Resp BP Pulse Ox 04/13/22 12:11 116 H 18 145/88 95 04/13/22 08:54 98 F 113 H 18 151/92 100 Intake and Output 04/12/22 04/13/22 04/13/22 22:59 06:59 14:59 Other: Weight 76.204 kg Patient is an elderly female, very pleasant, in no acute distress. Patient is alert awake oriented to time place and person. Speech and language functions are normal. Patient can name and repeat very well. No aphasia or dysarthria. Attention, concentration and fund of knowledge is adequate. On cranial nerve examination, pupils are equal, round and reacting to light, visual whipple are full on confrontation, with no neglect on double simultaneous stimulation. Extraocular muscles are intact with no nystagmus. Face is symmetric, tongue protrudes to the midline. Palatal elevation and sensation normal, hearing and shoulder shrug normal, facial sensation normal. On muscle strength testing, there is no pronator drift and the strength is normal in arms and legs distally and proximally. Deep tendon reflexes are symmetric 2 at the biceps, 2 at brachioradialis, 2 at the knees, 1+ ankles and plantars downgoing bilaterally. Sensory to touch is equal with no neglect on double simultaneous stimulation. Cerebellar function showed no ataxia for stccjn-bj-ratr testing. No dysdiadochokinesia. No ataxia for dehu-cg-ddpe testing on either side. Tone and bulk of muscles normal. Gait deferred.. On general examination, there is no carotid bruit or murmur, S1-S2 audible. Chest is clear on consultation. Abdomen is soft nontender. No organomegaly, bowel sounds present. Peripheral pulses are present. No edema. Results - Laboratory Findings CBC and BMP: 04/13/22 09:30 04/13/22 09:30 Abnormal Lab Findings: Abnormal Labs 04/13/22 04/13/22 04/13/22 09:05 09:30 09:56 Sodium 136 L Carbon Dioxide 17 L Creatinine 0.49 L Glucose 161 H POC Glucose (mg/dL) 147 H AST 40 H Albumin 5.2 H Ur Leukocyte Esterase Small H Assessment and Plan Assessment: * Transient episode of amnesia, lasting for about 15 minutes. Exact cause u ncertain. Differential diagnosis includes TIA, migraine aura, versus focal seizure. * Hypertension * Diabetes * Hyperlipidemia * Migraine headaches Plan: * Patient needs further workup to evaluate for the cause of her transient amnesia. * MRI brain * EEG * Carotid Doppler * 2-D echo * Hemoglobin A1c, lipid panel, B12, folate * Patient was not taking aspirin. Patient was given loading dose of aspirin 324 mg. * Telemetric monitoring, rule out arrhythmia. * Neurology will follow. Thank you for the consult.
[2022-04-13] MEDS ORDERED: diazePAM 5 MG TAB PO STA (15:45)
--- NOTE | 2022-04-13 17:09 | MR ---
EXAMINATION TYPE: MR brain wo con DATE OF EXAM: 04/13/2022 4:59 PM COMPARISON: CT brain 04/13/2022 CLINICAL INDICATION:Female, 66 years old with history of Transient amnesia; TECHNIQUE: Multi planar, multi sequence imaging was performed through the brain including: T1, T2, In version recovery, Diffusion weighted imaging, and gradient echo imaging. No gadolinium was given. FINDINGS: The cook-white junctions, ventricular system, and cisterns appear unremarkable. Minimal scattered fo ci of high T2 signal intensity are seen within the periventricular white matter. Midline structures s how no abnormality. Diffusion-weighted imaging shows no evidence of restricted diffusion. The bone marrow signal is within normal limits. The paranasal sinuses are clear. The globes are unrem arkable. There is mild trace left high T2 mastoid air cell effusion. IMPRESSION: 1. No evidence of intracranial mass or acute/subacute infarct. 2. Minimal nonspecific residual deformity with prior white matter changes, likely secondary to small vessel ischemic disease.
[2022-04-13 17:49] LABS: Glucose,Whole Blood 110 mg/dL (70-110)
--- NOTE | 2022-04-13 20:24 | US ---
EXAMINATION TYPE: US carotid duplex BILAT DATE OF EXAM: 04/13/2022 COMPARISON: NONE CLINICAL HISTORY: Transient amnesia. TECHNIQUE: Carotid duplex ultrasound examination. Indirect Doppler criteria was utilized. FINDINGS: EXAM MEASUREMENTS: RIGHT: Peak Systolic Velocity (PSV) cm/sec ----- Right CCA: 74.5 ----- Right ICA: 75.4 ----- Right ECA: 99.1 ICA/CCA ratio: 1.0 RIGHT: End Diastole cm/sec ----- Right CCA: 26.7 ----- Right ICA: 17.1 ----- Right ECA: 20.2 LEFT: Peak Systolic Velocity (PSV) cm/sec ----- Left CCA: 72.0 ----- Left ICA: 119.8 ----- Left ECA: 90.1 ICA/CCA ratio: 1.7 LEFT: End Diastole cm/sec ----- Left CCA: 21.5 ----- Left ICA: 35.7 ----- Left ECA: 15.0 VERTEBRALS (direction of flow): Right Vertebral: Antegrade Left Vertebral: Antegrade Rhythm: Normal CAR MECHANIC NOTES: No plaque seen bilaterally. IMPRESSION: Less than 50% stenosis of the bilateral carotid bifurcations. Criteria for Assigning % of Stenosis / Diameter reduction (Estimation based on the indirect measurements of the internal carotid artery velocities (ICA PSV). 1. Normal (no stenosis)=ICA PSV < 125 cm/s: ratio < 2.0: ICA EDV<40 cm/s. 2. Less than 50% stenosis=ICA PSV < 125 cm/s: ratio < 2.0: ICA EDV<40 cm/s. 3. 50 to 69% stenosis=ICA PSV of 125 to 230 cm/s: ration 2.0 ? 4.0: ICA EDV 40-100 cm/s. 4. Greater than 70% stenosis to near occlusion= ICA PSV > 230 cm/s: ratio > 4.0: ICA EDV > 100 cm/s. 5. Near occlusion= ICA PSV velocities may be low or undetectable: variable ratio and ICA EDV. 6. Total occlusion=unable to detect flow.
[2022-04-13] MEDS: ACETAMINOPHEN TAB 325 MG TAB PO PRN (20:37)
[2022-04-13] MEDS: metFORMIN 500 MG TAB PO SCH (20:38)
[2022-04-13] MEDS: busPIRone HCl 5 MG TAB PO SCH (20:38)
[2022-04-13 20:39] LABS: Glucose,Whole Blood 151 mg/dL (70-110)
[2022-04-13] MEDS ORDERED: CYCLOBENZAPRINE 10 MG TAB PO SCH (21:00)
[2022-04-14] MEDS: ACETAMINOPHEN TAB 325 MG TAB PO PRN (02:47)
--- NOTE | 2022-04-14 03:43 | EEG ---
DATE OF SERVICE: 04/13/2022 ELECTROENCEPHALOGRAM REPORT PREAMBLE: This is a 66-year-old female with episode of amnesia. The patient has history of migraines and diabetes. EEG FINDINGS: This is a 21-channel digital EEG recorded with video component, utilizing 10/20 international system with referential and bipolar montages. The recording is technically limited because of significant electrical interference, particularly with bad electrode connection at P4. Otherwise, the background consists of well developed, well regulated moderate voltage activity in mixed alpha and beta activity in bihemispheric region. Background seems to be reactive to eye opening and closing. Photic driving response was not seen. Different stages of sleep were not seen. No focal or generalized epileptiform activity was seen. IMPRESSION: This is essentially a normal awake EEG. The presence of excessive low-voltage fast frequency beta activity suggests medication effect. The EEG was technically limited. Consider repeat EEG, if your suspicion for seizures is high. MMOMAR / IJN: [id number] / MTDD
[2022-04-14 07:50] LABS: Glucose,Whole Blood 149 mg/dL (70-110)
[2022-04-14] MEDS ORDERED: lisinopriL 20 MG TAB PO SCH (09:00)
[2022-04-14] MEDS ORDERED: ATORVASTATIN 40 MG TAB PO SCH (09:00)
[2022-04-14] MEDS ORDERED: MELOXICAM 7.5 MG TAB PO SCH (09:00)
[2022-04-14] MEDS ORDERED: ESCITALOPRAM 20 MG TAB PO SCH (09:00)
[2022-04-14 09:02] LABS: Chol/HDL Ratio 3.27 Ratio; LDL Cholesterol,Calculated 96.2 mg/dL (0.0-131.0)
[2022-04-14] MEDS ORDERED: ASPIRIN 81 MG PO SCH (09:30)
[2022-04-14] MEDS ORDERED: DEXTROSE 50% SYRINGE 50 ML IVP PRN ×2 (09:43)
[2022-04-14] MEDS: metFORMIN 500 MG TAB PO SCH (10:01)
[2022-04-14] MEDS: busPIRone HCl 5 MG TAB PO SCH (10:01)
--- NOTE | 2022-04-14 10:28 | CA ---
Transthoracic Echo Report Name: Dara Phan Age: 66 Gender: F : 1955 Exam Date: 04/14/2022 08:25 Exam Location: [place] [facility] Ht (in): 62 Wt (lb): 163 Ordering Physician: Karel Smith MD Attending/Referring Phys: Shuttle Threader Nanette Gutierrez RDCS Procedure CPT: Indications: Transient amnesia Cardiac Hx: Technical Quality: Contrast 1: Total Dose (mL): Contrast 2: Total Dose (mL): MEASUREMENTS (Male / Female) Normal Values 2D ECHO LV Diastolic Diameter PLAX 4.4 cm 4.2 - 5.9 / 3.9 - 5.3 cm LV Systolic Diameter PLAX 3.9 cm IVS Diastolic Thickness 0.9 cm 0.6 - 1.0 / 0.6 - 0.9 cm LVPW Diastolic Thickness 1.3 cm 0.6 - 1.0 / 0.6 - 0.9 cm LV Relative Wall Thickness 0.5 RV Internal Dim ED PLAX 3.1 cm LA Systolic Diameter LX 3.3 cm 3.0 - 4.0 / 2.7 - 3.8 cm LA Volume 48.6 cm??? 18 - 58 / 22 - 52 cm??? M-MODE Aortic Root Diameter MM 2.9 cm LA Systolic Diameter MM 3.5 cm LA Ao Ratio MM 1.2 MV E Point Septal Separation 0.7 cm AV Cusp Separation MM 1.9 cm DOPPLER MV Area PHT 3.1 cm??? Mitral E Point Velocity 41.2 cm/s Mitral A Point Velocity 63.6 cm/s Mitral E to A Ratio 0.6 MV Deceleration Time 248.3 ms MV E' Velocity 6.5 cm/s Mitral E to MV E' Ratio 6.3 FINDINGS Left Ventricle Normal left ventricular size, wall thickness, systolic function with no obvious regional wall motion abnormalities. Left ventricular ejection fraction is estimated at 55-60 %. Right Ventricle The right ventricle is normal in size and function. Right Atrium The right atrium is normal in size. Left Atrium The left atrium is normal in size. Mitral Valve Structurally normal mitral valve without significant stenosis or prolapse. Aortic Valve Structurally normal aortic valve without significant sclerosis or stenosis. There is no aortic regurgitation. Tricuspid Valve Structurally normal tricuspid valve without significant stenosis. Pulmonic Valve Structurally normal pulmonic valve. There is no pulmonic regurgitation. Pericardium Normal pericardium without effusion. Aorta Normal aortic root dimension. CONCLUSIONS 1. Normal ventricle size and systolic function 2. Normal valvular structures Previewed by: Dr. Cele Rawls MD (Electronically Signed) Final Date: 14 April 2022 10:27
[2022-04-14] MEDS ORDERED: PANTOPRAZOLE 40 MG/10 ML VIAL IVP SCH (12:15)
[2022-04-14] MEDS ORDERED: INSULIN ASPART (NovoLOG) 100 UNIT/ML VIAL SQ SCH (12:30)
[2022-04-14 12:33] LABS: Glucose,Whole Blood 96 mg/dL (70-110)
[2022-04-14] MEDS ORDERED: CYANOCOBALAMIN 1,000 MCG/ML 1 ML VIAL IM ONE (14:48)
[2022-04-14 15:30] VITALS: BP 113/75; PULSE 95; RESP 16; TEMP 97.7
--- NOTE | 2022-04-14 17:17 | P.HPIM ---
History of Present Illness H&P Date: 04/14/22 Chief Complaint: Amnesia, transient History and Physical and Discharge Summary This is a 66-year-old female with past medical history of hypertension, hyperlipidemia, diabetes, migraines, works at the [employer] presented to ER with concerns for transient memory loss. Reported she had been under significant stress, totally forgot to return to a meeting; reports could not account for the time lost. Discovered herself in her office with no recall of what transpired. Question coworkers of any unusual behavior she may have exhibited-negative. Called her , to transport her to the hospital. Once in the ER developed migraine.Denied chest pain, palpitations, shortness of breath. Denied lightheadedness dizziness or focal deficits. Denies slurred speech, facial droop, visual disturbances, numbness tingling weakness. Denies nausea vomiting diarrhea or abdominal pain. Blood pressure mildly elevated on admission, 151/92, mild tachycardia in the 1 teens, maintaining O2 sats in the high 90s to 100% on room air. Afebrile, normal WBC/hematology/coagulation panel. Sodium 136, potassium 4.6, bicarb 17, BUN 11, creatinine 0.49, glucose 161, A1c 6.9 AST 40, ammonia less than 9, troponin less than 0.012, albumin 5.2, triglycerides 199, cholesterol 196, LDL 96.2, HDL 60, vitamin B12 low at 172, received a vitamin B12 injection, folate greater than 20. UA negative. Brain CT reported no acute intracranial process. Neurology consult in place. Reports history of migraines since she was a teenager, having multiple migraines monthly lasting up to 2 days. Post menopause frequency of migraines decreased to maybe twice a year with decreased severity, no aura. Reports her mother had a history of TIA. Review of Systems ROS Statement: Those systems with pertinent positive or pertinent negative responses have been documented in the HPI. ROS Other: All systems not noted in ROS Statement are negative. Past Medical History Past Medical History: Diabetes Mellitus, GERD/Reflux, Hyperlipidemia, Hypertension, Musculoskeletal Disorder, Osteoarthritis (OA) Additional Past Medical History / Comment(s): migraines, DDD, scoliosis History of Any Multi-Drug Resistant Organisms: None Reported Past Surgical History: Cholecystectomy, Orthopedic Surgery, Tubal Ligation Additional Past Surgical History / Comment(s): ent surgery, elbow sx, mark lasix sx, cataracts removed Past Anesthesia/Blood Transfusion Reactions: Postoperative Nausea & Vomiting (PONV) Past Psychological History: Anxiety, Depression Smoking Status: Never smoker Past Alcohol Use History: Occasional Past Drug Use History: None Reported - Past Family History Mother Family Medical History: No Reported History Additional Family Medical History / Comment(s): at age 76 of Alzheimer's Brother(s) Additional Family Medical History / Comment(s): Brother had a heart attack at an early age. Also grandfather had a heart attack Medications and Allergies Home Medications Medication Instructions Recorded Confirmed Type metFORMIN HCL ER [Glucophage XR] 500 mg PO BID 11/11/13 04/13/22 History lisinopriL [Zestril] 20 mg PO DAILY 01/05/17 04/13/22 History Escitalopram [Lexapro] 20 mg PO QAM 11/13/17 04/13/22 History Celecoxib [CeleBREX] 200 mg PO DAILY 04/26/21 04/13/22 History Cyclobenzaprine [Flexeril] 10 mg PO HS 04/26/21 04/13/22 History busPIRone HCl [Buspar] 5 mg PO BID 04/26/21 04/13/22 History Atorvastatin [Lipitor] 40 mg PO DAILY 04/13/22 04/13/22 History traMADol HCl [Ultram] 50 mg PO HS PRN 04/13/22 04/13/22 History Allergies Allergy/AdvReac Type Severity Reaction Status Date / Time morphine Allergy Anaphylaxis Verified 04/13/22 10:12 Physical Exam Vitals: Vital Signs Temp Pulse Pulse Resp BP BP Pulse Ox 04/14/22 10:01 18 04/14/22 07:00 97.5 F L 84 18 123/74 94 L 04/14/22 02:44 98.0 F 78 17 101/65 97 04/13/22 20:12 98.7 F 91 17 114/72 96 04/13/22 16:16 104 H 04/13/22 15:00 98.3 F 104 H 18 126/75 95 04/13/22 14:00 80 18 133/78 98 04/13/22 12:11 116 H 18 145/88 95 Intake and Output 04/13/22 04/14/22 04/14/22 22:59 06:59 14:59 Intake Total 118 Balance 118 Intake: Oral 118 Other: Voiding Method Toilet Toilet # Voids 2 2 PHYSICAL EXAM: VITAL SIGNS: As above GENERAL: Sitting up in bed, no acute distress HEENT: Conjunctivae normal. eyes normal. NECK: No JVD. No thyroid enlargement. No LNs CARDIOVASCULAR: S1, S2 regular.. No murmur RESPIRATION: Breath sounds diminished in the bases. No rhonchi or crackles. No bronchial breathing. ABDOMEN: Soft, nontender . No guarding. no masses palpable. No ascites, No hepatosplenomegaly.Bowel sounds heard. LEGS: No edema. no swelling PSYCHIATRY: Alert and oriented X3, mood and affect normal. NERVOUS SYSTEM: Cranial N 2-12 grossly normal. No focal deficits. Strength and sensation grossly intact.. Skin: Warm and dry, no rash Results CBC & Chem 7: 04/13/22 09:30 04/13/22 09:30 Labs: Abnormal Lab Results - Last 24 Hours (Table) 04/13/22 04/13/22 04/13/22 Range/Units 09:30 09:30 20:38 POC Glucose (mg/dL) 151 H (70-110) mg/dL Hemoglobin A1c 6.9 H (0.0-6.0) % Triglycerides (0.00-149.00) mg/dL Vitamin B12 172.0 L (200.0-944.0) pg/mL 04/14/22 04/14/22 Range/Units 05:30 07:49 POC Glucose (mg/dL) 149 H (70-110) mg/dL Hemoglobin A1c (0.0-6.0) % Triglycerides 199.00 H (0.00-149.00) mg/dL Vitamin B12 (200.0-944.0) pg/mL Thrombosis Risk Factor Assmnt - Choose All That Apply Any of the Below Risk Factors Present?: Yes Each Factor Represents 1 point: Obesity (BMI >25) Each Risk Factor Represents 2 Points: Age 61-74 years Thrombosis Risk Factor Assessment Total Risk Factor Score: 3 Thrombosis Risk Factor Assessment Level: Moderate Risk Assessment and Plan Assessment: Transient episode of amnesia, lasting for about 15 minutes. Etiology unclear. Differential diagnosis includes TIA, migraine aura, versus focal seizure. Hypertension Hyperlipidemia Diabetes mellitus History of migraines Plan: Continue on current medication regime ,monitoring and symptomatic treatment. Neuro workup in progress. Significant clinical improvement. Patient will be discharged home later today in a stable condition with guarded prognosis pending completion of neuro workup, final DC recommendations and clearance per neurology. Discharge Medication List metFORMIN HCL ER [Glucophage XR] 500 mg PO BID 11/11/13 [History] lisinopriL [Zestril] 20 mg PO DAILY 01/05/17 [History] Escitalopram [Lexapro] 20 mg PO QAM 11/13/17 [History] Celecoxib [CeleBREX] 200 mg PO DAILY 04/26/21 [History] Cyclobenzaprine [Flexeril] 10 mg PO HS 04/26/21 [History] busPIRone HCl [Buspar] 5 mg PO BID 04/26/21 [History] Atorvastatin [Lipitor] 40 mg PO DAILY 04/13/22 [History] traMADol HCl [Ultram] 50 mg PO HS PRN 04/13/22 [History] The impression and plan of care has been dictated as directed. : I performed a history and examination of this patient, discussed the same with the dictator. I agree with the dictator's note ,documented as a scribe. Any additional findings or plans will be noted.
--- NOTE | 2022-04-15 00:17 | P.PN ---
Subjective Progress Note Date: 04/14/22 Patient was seen for a follow-up. Patient offers no complaints. Her memory functions are back to normal. Denies any focal symptoms. Objective - Vital Signs Vital signs: Vital Signs Temp 97.7 F 04/14/22 15:00 Pulse 95 04/14/22 15:00 Resp 16 04/14/22 15:00 BP 113/75 04/14/22 15:00 Pulse Ox 94 L 04/14/22 15:00 FiO2 Intake & Output 04/13/22 04/14/22 04/14/22 18:59 06:59 18:59 Intake Total 118 Balance 118 Weight 76.204 kg Intake: Oral 118 Other: Voiding Method Toilet Toilet # Voids 2 1 - Exam Patient's mental status, speech and language functions are normal. Cranial nerves are normal. Muscle strength normal. No ataxia. Sensations equal. Gait normal. - Labs CBC & Chem 7: 04/13/22 09:30 04/13/22 09:30 Labs: Abnormal Lab Results - Last 24 Hours (Table) 04/13/22 04/13/22 04/13/22 Range/Units 09:30 09:30 20:38 POC Glucose (mg/dL) 151 H (70-110) mg/dL Hemoglobin A1c 6.9 H (0.0-6.0) % Triglycerides (0.00-149.00) mg/dL Vitamin B12 172.0 L (200.0-944.0) pg/mL 04/14/22 04/14/22 Range/Units 05:30 07:49 POC Glucose (mg/dL) 149 H (70-110) mg/dL Hemoglobin A1c (0.0-6.0) % Triglycerides 199.00 H (0.00-149.00) mg/dL Vitamin B12 (200.0-944.0) pg/mL Assessment and Plan Assessment: * Transient episode of amnesia, lasting for about 15 minutes. Exact cause uncertain. Possible transient global amnesia. Differential diagnosis includes TIA, migraine aura, versus focal seizure. * Hypertension * Diabetes * Hyperlipidemia * Vitamin B12 deficiency * Migraine headaches Plan: * MRI brain showed no evidence of intracranial mass or acute/subacute infarct. Minimal nonspecific white matter changes likely secondary to small vessel ischemic disease. I personally reviewed MRI, I agree with the findings. No abnormal signal in the hippocampus. * EEG is essentially normal awake pattern. Presence of excessive low voltage fast frequency beta activity suggest medication effect. The EEG was technically limited. Consider repeat EEG, if your suspicion for seizure is high. * Carotid Doppler showed less than 50% stenosis of bilateral ICA. * 2-D echo revealed normal left-ventricular size and systolic function with EF 55-60%. Left atrial size is normal. Normal valvular structures. * Hemoglobin A1c 6.9, indicating well-controlled diabetes * Lipid panel with cholesterol 196, LDL 96, HDL 60, triglycerides 196. Continue Lipitor 40 mg. * B12 172, folate > 20. Patient was given vitamin B12 1000 g IM 1 dose. She should receive vitamin B12 1000 g IM weekly for 4 weeks and then twice a month. Patient was recommended to may have antibodies checked for cause of B12 deficiency as an outpatient. * Patient was not taking aspirin. Patient was given loading dose of aspirin 324 mg. continue aspirin 81 mg daily indefinitely. * Neurologically clear for discharge.
== END 2022-04-14 16:03 ==
LOC: EC 08:44 → 6NMEDSUR 11:42
PROVIDERS: ADMIT Family Medicine; ATTEND Family Medicine
DX: G45.4 Transient global amnesia (principal); I10 Essential (primary) hypertension; E78.5 Hyperlipidemia, unspecified; K21.9 Gastro-esophageal reflux disease without esophagitis; F32.A Depression, unspecified; E53.8 Deficiency of other specified B group vitamins; F41.9 Anxiety disorder, unspecified; E11.9 Type 2 diabetes mellitus without complications; Z79.84 Long term (current) use of oral hypoglycemic drugs; Z79.899 Other long term (current) drug therapy; Z79.1 Long term (current) use of non-steroidal anti-inflammatories (NSAID); Z88.5 Allergy status to narcotic agent; Z90.49 Acquired absence of other specified parts of digestive tract; Z82.49 Family history of ischemic heart disease and other diseases of the circulatory system; Z82.3 Family history of stroke; Z78.0 Asymptomatic menopausal state; Z98.42 Cataract extraction status, left eye; Z98.41 Cataract extraction status, right eye; Z82.0 Family history of epilepsy and other diseases of the nervous system
CPT/HCPCS: 96372; 96374; 99285; 36415; 95816; 93005; 93306; 80061; 80053; 82607; 82140; 82746; 84484; 85025; 85610; 85730; 81001; 83036; 93880; 70450; 70551; G0378 ×2; J3420; C9113

== ENCOUNTER → 2024-11-15 | Outpatient (CLI) | payer MEDICARE ==
--- NOTE | 2024-11-18 13:56 | MM ---
Reason for Exam: Screening (asymptomatic). Last mammogram was performed 3 year(s) and 9 month(s) ago. Patient History: Menarche at age 13. First Full-Term at age 17. Postmenopausal. Patient has history of breast feeding. Paternal aunt had breast cancer, age 55. Risk Values: Francesca 5 year model risk: 1.2%. NCI Lifetime model risk: 4.0%. Prior Study Comparison: 02/11/2016 Bilateral Diagnostic Mammogram, [facility]. 04/27/2018 Bilateral Screening Mammogram, [facility]. 02/15/2021 Bilateral Screening Mammogram, [facility]. Tissue Density: The breasts are heterogeneously dense, which may obscure small masses. Findings: Analyzed By CAD. Right breast: There is no suspicious group of microcalcifications or new suspicious mass. Benign-appearing calcifications right breast. Left breast: There is no suspicious group of microcalcifications or new suspicious mass. Benign-appearing calcifications left breast. Overall Assessment: Benign, BI-RAD 2 Management: Screening Mammogram of both breasts in [address] [facility] will attempt to contact patient to return for supplemental views and ultrasound if indicated. Patient should continue monthly self-breast exams. A clinical breast exam by your physician is recommended on an annual basis. This exam should not preclude additional follow-up of suspicious palpable abnormalities. Note on Francesca scores and lifetime risk: 1. A Francesca score greater than 3% is considered moderate risk. If this is the case, consider specialist referral to assess eligibility for a risk reducing agent. 2. If overall lifetime risk for the development of breast cancer is 20% or higher, the patient may qualify for future screening with alternating mammogram and breast MRI. [facility], , 11/15/2024 8:55 AM. Electronically signed and approved by: Julien Shine DO
== END | disposition home or self-care (01) ==
LOC: RADMAMWWP 08:45
PROVIDERS: ATTEND Family Medicine
DX: Z12.31 Encounter for screening mammogram for malignant neoplasm of breast (principal); R92.333 Mammographic heterogeneous density, bilateral breasts; Z80.3 Family history of malignant neoplasm of breast; Z78.0 Asymptomatic menopausal state
CPT/HCPCS: 77063; 77067